=== PATIENT | male | born 2005 | race Caucasian/White ===

== ENCOUNTER 2024-03-19 11:06 | Emergency (ER) | payer SELFPAY ==
[~2024-03-19] VITALS: Ht 160 cm; Wt 81.0 kg
[2024-03-19 11:12] VITALS: O2SAT 98
[2024-03-19] MEDS: ACETAMINOPHEN 325MG TABLET PO ONE (14:28)
[2024-03-19] MEDS: TETANUS, DIPHTHERIA, PERTUSSIS VAC/PF 0.5ML (>10YR OLD) IM ONE (14:29)
[2024-03-19] MEDS: BACITRACIN ZINC OINT UDPKT TOP ONE (14:52)
[2024-03-19] MEDS: LIDOCAINE HCL/PF 1% 10 MG/ML 5ML VIAL INFIL ONE (14:52)
[2024-03-19] MEDS ORDERED: CEPH500C2 MT (15:28)
[2024-03-19 16:13] VITALS: BP 114/66; PULSE 85; RESP 17; TEMP 36.8; O2SAT 98
== END 2024-03-19 16:14 | disposition home or self-care (01) ==
LOC: ER 11:13
DX: S61.012A Laceration without foreign body of left thumb without damage to nail, initial encounter (principal); W26.0XXA Contact with knife, initial encounter; Y93.89 Activity, other specified; Y92.89 Other specified places as the place of occurrence of the external cause; Y99.8 Other external cause status
CPT/HCPCS: 73130; 90715; 12001; 90471; 99283; J2003; Z7610 ×3